=== PATIENT | female | born 1940 | race Caucasian/White ===

== ENCOUNTER 2024-04-12 11:33 | Emergency (ER) | payer MEDICARE, BC ==
[~2024-04-12] VITALS: Ht 167.6 cm; Wt 48.5 kg
[2024-04-12] MEDS ORDERED: ATEN25TA PO (12:38)
[2024-04-12] MEDS ORDERED: SERT25TA PO (12:38)
[2024-04-12] MEDS ORDERED: LISI20TA30 PO (12:38)
[2024-04-12] MEDS ORDERED: ONDA4TAB11 PO (12:38)
[2024-04-12] MEDS ORDERED: DONE10TA11 PO (12:38)
[2024-04-12] MEDS ORDERED: PROC-11 PO (12:38)
[2024-04-12] MEDS ORDERED: CLON0.5T4 PO (12:38)
[2024-04-12] MEDS ORDERED: PANT40SU2 GT (12:38)
[2024-04-12 13:02] VITALS: BP 108/59; TEMP 97.5; O2SAT 99
== END 2024-04-12 13:23 | disposition home or self-care (01) ==
LOC: ER 11:37
DX: G93.41 Metabolic encephalopathy (principal); N39.0 Urinary tract infection, site not specified; K21.9 Gastro-esophageal reflux disease without esophagitis; F03.94 Unspecified dementia, unspecified severity, with anxiety; Z79.899 Other long term (current) drug therapy
CPT/HCPCS: A4606; A4663